=== PATIENT | male | born 1945 | race Caucasian/White ===

== ENCOUNTER → 2017-08-06 | Outpatient (CLI) | payer MEDICARE, BC ==
[2017-08-06 12:35] LABS: BLOOD UREA NITROGEN 22 mg/dl (7-20)
[2017-08-06 12:35] LABS: CREATININE 1.16 mg/dl (0.61-1.24)
== END | disposition home or self-care (01) ==
LOC: LAB 11:57
DX: M54.5 Low back pain (principal)
CPT/HCPCS: 82565; 84520

== ENCOUNTER 2017-10-30 07:19 | Day surgery (SDC) | payer MEDICARE, BC ==
[2017-10-30] MEDS ORDERED: HEPARIN 1000 UNITS/ML 10 ML INJ (08:24)
[2017-10-30] MEDS ORDERED: CA CHLORIDE 10% 10 ML SYRINGE (08:24)
[2017-10-30] MEDS ORDERED: CYCLOBENZAPRINE 10 MG TAB PO (10:00)
[2017-10-30] MEDS ORDERED: HYDROmorphONE 0.5 MG/0.5 ML SYG IV (10:00)
[2017-10-30] MEDS ORDERED: CEPASTAT LOZENGE MT (10:00)
[2017-10-30] MEDS ORDERED: ACETAMINOPHEN 325 MG TAB PO (10:00)
[2017-10-30] MEDS ORDERED: DIPHENHYDRAMINE 50 MG INJ IV ×2 (10:00→12:30)
[2017-10-30] MEDS ORDERED: NALOXONE (0.4 MG/ML) INJ IV (10:00)
[2017-10-30] MEDS ORDERED: AL HYDROX/MG HYDROX/SIMETH 30 ML CUP PO (10:00)
[2017-10-30] MEDS ORDERED: BISACODYL 10 MG SUPP PR (10:00)
[2017-10-30] MEDS ORDERED: HYDROCODONE/APAP (10/325) TAB PO (10:00)
[2017-10-30] MEDS ORDERED: ONDANSETRON 4 MG INJ IV ×2 (10:00→12:30)
[2017-10-30] MEDS ORDERED: PROPOFOL 20 ML (10:16)
[2017-10-30] MEDS ORDERED: ROCURONIUM 50 MG INJ (10:16)
[2017-10-30] MEDS ORDERED: LIDOCAINE 2% (SDV) 5 ML INJ (10:16)
[2017-10-30] MEDS ORDERED: NEOSTIGMINE 3 MG/3 ML SYRINGE ×2 (10:16→11:10)
[2017-10-30] MEDS ORDERED: SUCCINYLCHOLINE CHLORIDE 100 MG/5 ML SYG IV (10:16)
[2017-10-30] MEDS ORDERED: MEPERIDINE 100 MG INJ (10:16)
[2017-10-30] MEDS ORDERED: GLYCOPYRROLATE 0.4 MG INJ ×2 (10:16→11:10)
[2017-10-30] MEDS: CEFAZOLIN 1 GM/50 ML (PMX) 50 ML IVPB ×2 (10:37→17:14)
[2017-10-30] MEDS: POLYMYXIN/BACITRACIN 1L IRRIG (11:03)
[2017-10-30] MEDS: THROMBIN 5000 UNIT VIAL (11:03)
[2017-10-30] MEDS: SURGIFOAM POWDER 1 GM KIT (11:03)
[2017-10-30] MEDS: BUPIVACAINE 0.25%/EPI (SDV) 30 ML INJ (11:04)
[2017-10-30] MEDS ORDERED: ONDANSETRON 4 MG INJ (11:09)
[2017-10-30] MEDS ORDERED: EPHEDrine SULFATE 50 MG/5 ML SYG (11:09)
[2017-10-30] MEDS ORDERED: METOCLOPRAMIDE 10 MG INJ (11:09)
[2017-10-30] MEDS ORDERED: CEFAZOLIN 1 GM INJ (11:09)
[2017-10-30] MEDS: FENTAnyl 50 MCG/ML VIAL (11:20)
[2017-10-30] MEDS ORDERED: LABETALOL HCL 20MG INJ IV (12:30)
[2017-10-30] MEDS ORDERED: OXYCODONE/ACETAMINOPHEN (5/325) TAB PO ×2 (12:30)
[2017-10-30] MEDS ORDERED: MIDAZOLAM 1 MG/ML 2 ML INJ IV (12:30)
[2017-10-30] MEDS ORDERED: METOCLOPRAMIDE 10 MG INJ IV (12:30)
[2017-10-30] MEDS ORDERED: EPHEDrine SULFATE 50 MG/5 ML SYG IV (12:30)
[2017-10-30] MEDS ORDERED: MEPERIDINE 25 MG INJ IV (12:30)
[2017-10-30] MEDS ORDERED: HYDROmorphONE (0.2 MG/ML) 10ML SYG IV ×3 (12:30)
[2017-10-30] MEDS ORDERED: FENTAnyl 50 MCG/ML VIAL IV ×3 (12:30)
[2017-10-30] MEDS ORDERED: hydrALAzine 20 MG INJ IV (12:30)
[2017-10-30] MEDS: HYDROmorphONE 0.2 MG/ML PCA IV (12:38)
[2017-10-30] MEDS: D5W-0.45 NACL + KCL 20 MEQ 1,000 ML IV ×3 (15:53→23:33)
[2017-10-30] MEDS: DOCUSATE SODIUM 100 MG CAP PO (20:13)
[2017-10-30] MEDS: ATORVASTATIN 40 MG TAB PO (20:13)
[2017-10-31] MEDS: CEFAZOLIN 1 GM/50 ML (PMX) 50 ML IVPB (01:58)
[2017-10-31 05:16] LABS: ADD MAN DIFF? NO
[2017-10-31 05:28] LABS: BASOPHILS % 0.3 % (0.0-2.0); EOSINOPHILS # 0.2 10^3/ul (0.0-0.5); EOSINOPHILS % 2.1 % (0.0-7.0); HEMATOCRIT 37.6 % (42.0-52.0); HEMOGLOBIN 12.4 g/dl (14.0-18.0); LYMPHOCYTES # 1.1 10^3/ul (0.8-2.9); LYMPHOCYTES % 14.1 % (15.0-51.0); MEAN CORPUSCULAR HEMOGLOBIN 30.3 pg (29.0-33.0); MEAN CORPUSCULAR VOLUME 91.9 fl (82.0-101.0); MEAN PLATELET VOLUME 10.3 fl (7.4-10.4); MONOCYTE # 0.7 10^3/ul (0.3-0.9); MONOCYTES % 9.4 % (0.0-11.0); NEUTROPHIL # 5.7 10^3/ul (1.6-7.5); NEUTROPHILS % 73.7 % (39.0-77.0); PLATELET COUNT 156 10^3/UL (140-415); RED BLOOD COUNT 4.09 10^6/ul (4.70-6.10)
[2017-10-31 05:28] LABS: WHITE BLOOD COUNT 7.8 10^3/ul (4.8-10.8)
[2017-10-31 06:00] LABS: ANION GAP 14 (8-16); BLOOD UREA NITROGEN 17 mg/dl (7-20); CALCIUM 8.9 mg/dl (8.4-10.2); CARBON DIOXIDE 28 mmol/L (21-31); CHLORIDE 104 mmol/L (97-110); GLUCOSE 125 mg/dl (70-220); MAGNESIUM 1.6 mg/dl (1.7-2.5); POTASSIUM 4.1 mmol/L (3.5-5.1); SODIUM 142 mmol/L (135-144)
[2017-10-31] MEDS: PANTOPRAZOLE (EC) 40 MG TAB PO (06:26)
[2017-10-31] MEDS: DOCUSATE SODIUM 100 MG CAP PO (08:52)
[2017-10-31] MEDS: LOSARTAN 50 MG TAB PO (08:52)
[2017-10-31] MEDS: HYDROCODONE/APAP (10/325) TAB PO ×2 (08:53→13:31)
[2017-10-31] MEDS: HYDROCHLOROTHIAZIDE 12.5 MG CAP PO (08:53)
== END 2017-10-31 13:40 | disposition home or self-care (01) ==
LOC: REC 07:19 → SDS 10-31 13:40 → MS1 15:30 → REC 15:30 → SDS 07:19 → MS1 16:06
DX: M48.062 Spinal stenosis, lumbar region with neurogenic claudication (principal); E78.5 Hyperlipidemia, unspecified; I10 Essential (primary) hypertension
CPT/HCPCS: 63047; 72020; 80048; 83735; 85025; 86999; 88304; 88311; 97116; 97162

== ENCOUNTER 2018-01-08 08:48 | Day surgery (SDC) | payer MEDICARE, BC ==
[2018-01-08] MEDS: CEFAZOLIN 2 GM/50 ML (PMX) 50 ML IVPB (06:00)
[~2018-01-08 08:48] MED LIST: LACTATED RINGER'S 1,000 ML IV*; ROCURONIUM 50 MG INJ
[2018-01-08] MEDS ORDERED: ROCURONIUM 50 MG INJ (10:33)
[2018-01-08] MEDS ORDERED: ONDANSETRON 4 MG INJ (10:33)
[2018-01-08] MEDS ORDERED: MIDAZOLAM 1 MG/ML 2 ML INJ (10:33)
[2018-01-08] MEDS ORDERED: NEOSTIGMINE 3 MG/3 ML SYRINGE (10:33)
[2018-01-08] MEDS ORDERED: GLYCOPYRROLATE 0.4 MG INJ (10:33)
[2018-01-08] MEDS ORDERED: CEFAZOLIN 1 GM INJ (10:33)
[2018-01-08] MEDS ORDERED: PROPOFOL 20 ML (10:33)
[2018-01-08] MEDS ORDERED: DEXAMETHASONE 4 MG/ML 1 ML INJ (10:34)
[2018-01-08] MEDS ORDERED: BISACODYL 10 MG SUPP PR (12:00)
[2018-01-08] MEDS ORDERED: AL HYDROX/MG HYDROX/SIMETH 30 ML CUP PO (12:00)
[2018-01-08] MEDS ORDERED: ACETAMINOPHEN 325 MG TAB PO (12:00)
[2018-01-08] MEDS ORDERED: HYDROmorphONE 0.5 MG/0.5 ML SYG IV (12:00)
[2018-01-08] MEDS ORDERED: CEPASTAT LOZENGE MT (12:00)
[2018-01-08] MEDS ORDERED: NALOXONE (0.4 MG/ML) INJ IV (12:00)
[2018-01-08] MEDS ORDERED: ZOLPIDEM 5 MG TAB PO (12:00)
[2018-01-08] MEDS ORDERED: DIPHENHYDRAMINE 50 MG INJ IV (12:00)
[2018-01-08] MEDS ORDERED: ONDANSETRON 4 MG INJ IV (12:00)
[2018-01-08] MEDS ORDERED: CYCLOBENZAPRINE 10 MG TAB PO (12:00)
[2018-01-08] MEDS: CEFAZOLIN 1 GM/50 ML (PMX) 50 ML IVPB ×2 (13:00→21:32)
[2018-01-08] MEDS ORDERED: PHENYLephrine (100 MCG/ML) 10ML SYG (13:13)
[2018-01-08] MEDS: BUPIVACAINE 0.25%/EPI (SDV) 30 ML INJ (13:35)
[2018-01-08] MEDS: SURGIFOAM POWDER 1 GM KIT (13:36)
[2018-01-08] MEDS: POLYMYXIN/BACITRACIN 1L IRRIG (13:36)
[2018-01-08] MEDS: THROMBIN 5000 UNIT VIAL (13:37)
[2018-01-08] MEDS: GELATIN SIZE 100 SPONGE (13:53)
[2018-01-08] MEDS ORDERED: ALBUTEROL 0.083% (NEB) 2.5 MG/3 ML AMP (14:08)
[2018-01-08] MEDS ORDERED: SUGAMMADEX SODIUM 200 MG/2 ML VIAL IV (15:09)
[2018-01-08] MEDS: HYDROmorphONE 0.2 MG/ML PCA IV (15:58)
[2018-01-08] MEDS: D5W-0.45 NACL + KCL 20 MEQ 1,000 ML IV ×2 (18:15→23:00)
[2018-01-08] MEDS: LOSARTAN 25 MG TAB PO (19:07)
[2018-01-08] MEDS: GABAPENTIN 300 MG CAP PO (21:23)
[2018-01-08] MEDS: DOCUSATE SODIUM 100 MG CAP PO (21:32)
[2018-01-09 05:25] LABS: ADD MAN DIFF? NO
[2018-01-09] MEDS: CEFAZOLIN 1 GM/50 ML (PMX) 50 ML IVPB (05:36)
[2018-01-09] MEDS: PANTOPRAZOLE 40 MG INJ IV (05:36)
[2018-01-09 05:40] LABS: BASOPHILS % 0.1 % (0.0-2.0); EOSINOPHILS % 0.1 % (0.0-7.0); HEMATOCRIT 39.1 % (42.0-52.0); HEMOGLOBIN 12.5 g/dl (14.0-18.0); LYMPHOCYTES # 0.8 10^3/ul (0.8-2.9); LYMPHOCYTES % 8.1 % (15.0-51.0); MEAN CORPUSCULAR HEMOGLOBIN 29.5 pg (29.0-33.0); MEAN CORPUSCULAR VOLUME 92.2 fl (82.0-101.0); MONOCYTE # 0.7 10^3/ul (0.3-0.9); MONOCYTES % 6.6 % (0.0-11.0); NEUTROPHIL # 8.4 10^3/ul (1.6-7.5); NEUTROPHILS % 84.7 % (39.0-77.0); PLATELET COUNT 189 10^3/UL (140-415); RED BLOOD COUNT 4.24 10^6/ul (4.70-6.10)
[2018-01-09 05:40] LABS: WHITE BLOOD COUNT 9.9 10^3/ul (4.8-10.8)
[2018-01-09 06:21] LABS: ANION GAP 14 (8-16); BLOOD UREA NITROGEN 19 mg/dl (7-20); CALCIUM 9.3 mg/dl (8.4-10.2); CARBON DIOXIDE 27 mmol/L (21-31); CHLORIDE 106 mmol/L (97-110); GLUCOSE 187 mg/dl (70-220); MAGNESIUM 1.7 mg/dl (1.7-2.5); POTASSIUM 4.6 mmol/L (3.5-5.1); SODIUM 142 mmol/L (135-144)
[2018-01-09] MEDS: LOSARTAN 25 MG TAB PO (08:22)
[2018-01-09] MEDS: DOCUSATE SODIUM 100 MG CAP PO (08:23)
[2018-01-09] MEDS: D5W-0.45 NACL + KCL 20 MEQ 1,000 ML IV (09:00)
[2018-01-09] MEDS: HYDROCODONE/APAP (5/325) TAB PO (09:20)
[2018-01-09] MEDS ORDERED: HYDROCODONE/APAP (5/325) TAB PO (10:00)
== END 2018-01-09 11:21 | disposition home or self-care (01) ==
LOC: REC 08:48 → MS1 16:39 → SDS 08:48 → MS1 16:39 → SDS 01-09 11:21
DX: M50.022 Cervical disc disorder at C5-C6 level with myelopathy (principal); M50.023 Cervical disc disorder at C6-C7 level with myelopathy; M48.02 Spinal stenosis, cervical region; I10 Essential (primary) hypertension; Z85.46 Personal history of malignant neoplasm of prostate
CPT/HCPCS: 20930; 72050; 80048; 83735; 85025; 86850; 86900; 86901; 86999; 88304; 97161